=== PATIENT | male | born 1990 | race Caucasian/White ===

== ENCOUNTER 2017-10-17 11:08 | Emergency (ER) | payer SELFPAY ==
[2017-10-17 11:10] VITALS: BP 135/80
== END 2017-10-17 13:19 | disposition other institution (70) ==
LOC: ED 11:08
DX: S30.1XXA Contusion of abdominal wall, initial encounter (principal); V49.9XXA Car occupant (driver) (passenger) injured in unspecified traffic accident, initial encounter; Y93.89 Activity, other specified; Y92.413 State road as the place of occurrence of the external cause; Y99.8 Other external cause status

== ENCOUNTER 2017-10-17 11:08 | Emergency (ER) | payer OTHER | END 2017-10-17 13:19 | disposition other institution (70) | LOC: ED 11:08 | DX: Z02.89 Encounter for other administrative examinations (principal) ==

== ENCOUNTER 2019-08-03 08:25 | Emergency (ER) | payer SELFPAY ==
[~2019-08-03] VITALS: Ht 170.2 cm; Wt 79.8 kg
[2019-08-03 08:36] VITALS: Ht 170.2 cm; Wt 79.8 kg
[2019-08-03 10:34] VITALS: BP 115/72
== END 2019-08-03 10:34 | disposition home or self-care (01) ==
LOC: ED 08:25
DX: S01.511A Laceration without foreign body of lip, initial encounter (principal); S09.93XA Unspecified injury of face, initial encounter; W51.XXXA Accidental striking against or bumped into by another person, initial encounter; Y93.67 Activity, basketball; Y92.89 Other specified places as the place of occurrence of the external cause; Y99.8 Other external cause status
CPT/HCPCS: 90715; J1885; J2001